=== PATIENT | male | born 1980 | race Caucasian/White ===

== ENCOUNTER 2019-05-20 15:47 | Emergency (ER) | payer BC ==
[2019-05-20 16:12] VITALS: BP 110/73
--- NOTE | 2019-05-20 16:26 | UC ---
Lower Extremity/Ankle HPI - HPI Summary HPI Summary: 38-year-old male who was playing basketball today when he was running on the cord and he felt a pop in his right Achilles area and thinks he may have ruptured his Achilles tendon. This did not involve jumping. - History of Current Complaint Chief Complaint: UCLowerExtremity Stated Complaint: LEG INJURY Time Seen by Provider: 05/20/19 16:19 Hx Obtained From: Patient Onset/Duration: Sudden Onset Severity Initially: Moderate Severity Currently: Moderate Pain Intensity: 5 Aggravating Factor(s): Standing, Ambulation Alleviating Factor(s): Nothing Able to Bear Weight: Yes - Allergies/Home Medications Allergies/Adverse Reactions: Allergies Allergy/AdvReac Type Severity Reaction Status Date / Time No Known Allergies Allergy Verified 05/20/19 16:12 Home Medications: Home Medications Mesalamine [Lialda] 1.2 gm PO BID 05/20/19 [History Confirmed 05/20/19] PMH/Surg Hx/FS Hx/Imm Hx Previously Healthy: Yes - Surgical History Surgical History: None - Family History Known Family History: Positive: Non-Contributory - Social History Alcohol Use: None Substance Use Type: None Smoking Status (MU): Never Smoked Tobacco Review of Systems All Other Systems Reviewed And Are Negative: Yes Motor: Positive: Negative Neurovascular: Positive: Negative Musculoskeletal: Positive: Decreased ROM - Decreased range of motion right foot and patient thinks he tore his Achilles tendon. Neurological: Positive: Weakness - Weakness of right foot. Psychological: Positive: Negative Is Patient Immunocompromised?: No Physical Exam Triage Information Reviewed: Yes Appearance: Well-Appearing, No Pain Distress, Well-Nourished Vital Signs: Initial Vital Signs Temp 98.4 F 05/20/19 16:07 Pulse 63 05/20/19 16:07 Resp 12 05/20/19 16:07 BP 110/73 05/20/19 16:07 Pulse Ox 97 05/20/19 16:07 Vital Signs Reviewed: Yes Musculoskeletal: Positive: No Edema, Other: - With the patient laying on his abdomen on the table and his lower legs flexed there is no reaction with the Achilles tendon when squeezing his right calf muscle. Left Achilles tendon is normal with good movement. Neurological: Positive: Alert, Muscle Tone Normal Psychological Exam: Normal Skin Exam: Normal Lower Extremity Course/Dx - Course Course Of Treatment: I spoke with Dr. Livingston, orthopedist and he advised putting the patient in a posterior splint with his foot extended and he will see him in the office early next week. A posterior splint was applied and the patient was given crutches. He is to be nonweightbearing, elevate as much as possible and follow-up with the orthopedist on Thursday. No work until cleared by the orthopedist. - Differential Dx/Diagnosis Provider Diagnosis: Achilles rupture, right Discharge - Sign-Out/Discharge Documenting (check all that apply): Patient Departure All imaging exams completed and their final reports reviewed: No Studies - Discharge Plan Condition: Fair Disposition: HOME Patient Education Materials: Achilles Tendon Rupture (ED) Forms: *Work Release Referrals: David Delgadillo DO [Primary Care Provider] - Additional Instructions: No weightbearing, no work until cleared by the orthopedist, use crutches at all times, Tylenol for pain. Elevate as much as possible. - Billing Disposition and Condition Condition: FAIR Disposition: Home
== END 2019-05-20 17:40 | disposition home or self-care (01) ==
LOC: UCEAST 15:47
DX: S86.011A Strain of right Achilles tendon, initial encounter (principal); W17.89XA Other fall from one level to another, initial encounter; Y93.67 Activity, basketball; Y92.310 Basketball court as the place of occurrence of the external cause; Y99.8 Other external cause status
CPT/HCPCS: 99203; G0463

== ENCOUNTER → 2019-05-30 10:01 | Day surgery (SDC) | payer BC ==
[~2019-05-30 10:01] MED LIST: Acetaminophen TAB* 325 MG ONE; Buffered Lidocaine 1% SYRIN* 1 ML/SYRINGE INTRADERM ONE; Bupivacaine 0.5%* 50 ML VIAL ONE; Ibuprofen TAB* 600 MG ONE; Lactated Ringers 1000 ML Bag* 1,000 ML IV SCH; Lidocaine 2% PF * 5 ML VIAL ONE; Lidocaine 2% PF* 10 ML AMP ONE; Midazolam* 1 MG/ML 2 ML VIAL (2 MG) ONE; Naloxone* 0.4 MG/ML 1 ML VIAL IV PRN; Ondansetron INJ* 2 MG/ML VIAL IV PRN; Ondansetron INJ* 2 MG/ML VIAL ONE; Propofol* 10 MG/ML 20 ML BTL ONE; Rocuronium* 10 MG/ML VIAL ONE; Sodium Citrate/Citric Acid* 15 ML UDC ONE; Sodium Citrate/Citric Acid* 15 ML UDC PO ONE; Sugammadex * 200 MG/2 ML VIAL IV PUSH ONE; ceFAZolin 2 GM in NS PREMIX(*) 2 GM/100 ML BAG IVPB ONE; fentaNYL* 50 MCG/ML 2 ML VIAL (100 MCG VIAL) ONE; oxyCODONE TAB* 5 MG TAB ONE
[2019-05-30] MEDS: fentaNYL* 50 MCG/ML 2 ML VIAL (100 MCG VIAL) IV PRN ×2 (13:48→14:09)
[2019-05-30 14:56] VITALS: BP 123/68
--- NOTE | 2019-05-30 22:19 | OP ---
DATE OF OPERATION: 05/30/19 - [facility] DATE OF : 84 ATTENDING SURGEON: Gerardo Rolle MD. MIRROR SPECIALIST: ABUNDIO Kathleen. PRE-OP DIAGNOSIS: Traumatic tear, right Achilles. POST-OP DIAGNOSIS: Traumatic tear, right Achilles. OPERATIVE PROCEDURE: Primary repair, right Achilles. DESCRIPTION OF PROCEDURE: The patient was taken to the operating room where a longitudinal incision was made medial to the Achilles tear. The tear itself was fairly proximal, maybe 6 or 7 cm above the insertion point. Because of this , we made a slightly more proximal incision in the calf. We wove our #1 PDS sutures above and below the tear in a remote fashion so that the knots could be tied remote from the tear one above and below 5 to 6 cm proximal and distal. This brought the ends together in a nice smooth atraumatic fashion. We then irrigated thoroughly, closing subcu with 3-0 Monocryl and hosea for the skin and a compression dressing applied. [id number] #: [id number]
== END | disposition home or self-care (01) ==
LOC: OR 10:01
PROVIDERS: ATTEND Orthopaedic Surgery
DX: S86.011A Strain of right Achilles tendon, initial encounter (principal); X50.0XXA Overexertion from strenuous movement or load, initial encounter; Y93.89 Activity, other specified; Y92.89 Other specified places as the place of occurrence of the external cause; K51.90 Ulcerative colitis, unspecified, without complications
CPT/HCPCS: A9270-GY; J0690; J2001; J2250; J2405; J2704; J3010; J3490